=== PATIENT | male | born 2005 | race Caucasian/White ===

== ENCOUNTER 2025-01-27 12:48 | Emergency (ER) | payer BC ==
[2025-01-27] MEDS ORDERED: Tetracaine 0.5% PF 4 ML BOT ONE (13:16)
[2025-01-27] MEDS ORDERED: Fluorescein Opthalmic Strip ONE (13:17)
[2025-01-27] MEDS ORDERED: diphenhydrAMINE 50 MG/ML VIAL ONE (13:37)
[2025-01-27] MEDS ORDERED: Metoclopramide HCl 10 MG (2 mL) VIAL ONE (13:37)
[2025-01-27] MEDS ORDERED: Ketorolac Tromethamine 30 MG (1 mL) VIAL ONE (13:38)
[2025-01-27 13:41] LABS: #Basophils 0.05 10x3/uL (0.0-0.2); #Eosinophils 0.08 10x3/uL (0.0-0.5); #Monocytes 0.42 10x3/uL (0.0-1.1); #Neutrophils 4.05 10x3/uL (1.5-8.4); %Basophils 0.8 % (0.0-2.0); %Eosinophils 1.3 % (0.0-6.0); %Lymphocytes 24.0 % (18.0-47.0); %Monocytes 6.9 % (0.0-10.0); %Neutrophils 66.7 % (40.0-75.0); Hematocrit 43.7 % (38.8-50.0); Hemoglobin 15.0 g/dL (13.5-17.5); Mean Corpuscular Hemoglobin 29.4 pg (27.0-33.0); Mean Corpuscular Volume 85.7 fL (81.2-95.1); Platelet Count 219 10x3/uL (150-450); Red Blood Cell (RBC) Count 5.10 10x6/uL (4.32-5.72); White Blood Cell (WBC) Count 6.08 10x3/uL (3.5-10.5)
[2025-01-27 14:31] LABS: ALT (SGPT) 15 U/L (Less than 45); AST (SGOT) 25 U/L (11-34); Acetaminophen Less than 10 mcg/mL (Less than 10); Albumin 4.5 g/dL (3.1-4.5); Alkaline Phosphatase 84 U/L (50-130); Anion Gap 12 mmol/L (10-20); BUN (Urea Nitrogen) 13 mg/dL (8.9-20.6); Bilirubin, Total 0.3 mg/dL (0.3-1.2); Calc. Creatinine Clearance 0 mL/min (70-130); Calcium 9.1 mg/dL (7.8-10.44); Carbon Dioxide 25 mmol/L (22-29); Chloride 106 mmol/L (98-107); Globulin 2.6 g/dL (2.4-3.5); Glucose 104 mg/dL (70-105); Magnesium 1.8 mg/dL (1.7-2.2); Potassium 3.5 mmol/L (3.5-5.1); Salicylate Less than 8.0 mg/dL (Less than 8.0); Sodium 139 mmol/L (136-145)
[2025-01-27 15:03] LABS: Cocaine Metabolite Screen Negative (Negative); THC/Cannabinoid Screen Negative (Negative); Tricyclic Screen Negative (Negative)
== END 2025-01-27 16:13 | disposition home or self-care (01) ==
LOC: EDBD 12:48 → CSHERS 12:48
DX: H53.8 Other visual disturbances (principal)
CPT/HCPCS: 36415; 80053; 80306; 80307; 83735; 85025; 93005; 96374; 96375; J1200; J1885; J2765